=== PATIENT | male | born 1945 | race Caucasian/White ===

== ENCOUNTER → 2018-06-11 18:52 | Outpatient (CLI) | payer MEDICARE ==
[2018-06-11 19:28] LABS: INR 1.23 (0.85-1.17)
== END | disposition home or self-care (01) ==
LOC: D.LABREF 18:52
PROVIDERS: Family Medicine
DX: I73.9 Peripheral vascular disease, unspecified (principal); Z51.81 Encounter for therapeutic drug level monitoring; Z79.01 Long term (current) use of anticoagulants

== ENCOUNTER → 2021-01-13 14:07 | Outpatient (CLI) | payer MEDICARE ==
[2021-01-13 15:54] LABS: ALBUMIN 2.1 g/dL (3.4-5.0); ANION GAP 13.5 mmol/L (8-16); BILIRUBIN - TOTAL 0.38 mg/dL (0.2-1.3); CALCIUM 8.3 mg/dL (8.5-10.1); CARBON DIOXIDE 30.1 mmol/L (21.0-32.0); CREATININE - SERUM 4.4 mg/dL (0.6-1.3); POTASSIUM - SERUM 4.6 mmol/L (3.5-5.1); PROTEIN - SERUM 7.3 g/dL (6.4-8.2)
[2021-01-13 16:28] LABS: HEMATOCRIT 34.9 % (42.0-54.0); HEMOGLOBIN 10.5 g/dL (13.5-17.5); LYMPHOCYTE ABS# 2.54 10x3/uL (1.32-3.57); MCHC 30.1 g/dL (31.0-37.0); MCV 99.7 fL (80.0-100.0); MEAN PLATELET VOLUME 9.8 fL (7.4-10.4); NEUTROPHIL ABS# 5.71 10x3/uL (1.78-5.38); PLATELET COUNT 480 10x3/uL (130-400); RDW 15.5 % (11.5-14.5)
[2021-01-13 17:18] LABS: EOSINOPHILS 2 % (0-7); LYMPHOCYTES 32 % (15-50); MONOCYTES 6 % (2-11); NEUTROPHILS 60 % (40-80); PLATELET ESTIMATE NORMAL
== END | disposition home or self-care (01) ==
LOC: D.LABREF 14:07
PROVIDERS: ATTEND Legal Medicine
DX: R53.83 Other fatigue (principal)

== ENCOUNTER 2021-03-28 07:48 | Inpatient (IN) | payer MEDICARE ==
[~2021-03-28] VITALS: Ht 177.8 cm; Wt 71.1 kg
[2021-03-28 08:20] LABS: ANION GAP 20.9 mmol/L (8-16); CALCIUM 9.6 mg/dL (8.5-10.1); CARBON DIOXIDE 27.2 mmol/L (21.0-32.0); CREATININE - SERUM 6.5 mg/dL (0.6-1.3); POTASSIUM - SERUM 5.1 mmol/L (3.5-5.1)
[2021-03-28 08:21] LABS: INR 4.06 (0.85-1.17); PROTIME 36.8 SECONDS (11.6-15.0)
[2021-03-28 08:22] LABS: BASOPHILS 1.3 % (0-2); EOSINOPHILS 5.1 % (0-7); HEMATOCRIT 34.2 % (42.0-54.0); HEMOGLOBIN 10.9 g/dL (13.5-17.5); LYMPHOCYTES 31.1 % (15-50); MCH 30.2 pg (26.0-34.0); MCHC 31.9 g/dL (31.0-37.0); MCV 94.4 fL (80.0-100.0); MEAN PLATELET VOLUME 7.5 fL (7.4-10.4); MONOCYTES 9.1 % (2-11); NEUTROPHILS 53.4 % (40-80); PLATELET COUNT 409 10x3/uL (130-400); RBC 3.62 10x6/uL (4.20-6.10); WBC 15.2 10x3/uL (4.8-10.8)
[2021-03-28] MEDS ORDERED: PRAVASTATIN SOD10 MG PO (09:41)
[2021-03-28] MEDS ORDERED: SYNTHROID175 MCG PO (09:41)
[2021-03-28] MEDS ORDERED: HUMALOG 30100 UNITS/ (09:43)
[2021-03-28] MEDS ORDERED: ACETAMINOPHEN325 MG PO (09:43)
[2021-03-28] MEDS ORDERED: LOW DOSE ASPIRI81 M1 PO (09:45)
[2021-03-28] MEDS ORDERED: BYSTOLIC5 MG PO (09:46)
[2021-03-28] MEDS ORDERED: SINEMET 25-1001 EAC1 PO (09:46)
[2021-03-28] MEDS ORDERED: PROTONIX40 MG PO (09:46)
[2021-03-28] MEDS ORDERED: VITAMIN D31250 MCG PO (09:46)
[2021-03-28] MEDS ORDERED: ZINC SULFATE220 MG PO (09:47)
[2021-03-28] MEDS ORDERED: DONEPEZIL HCL5 MG (09:47)
[2021-03-28] MEDS ORDERED: ASCORBIC ACID500 MG PO (09:47)
[2021-03-28] MEDS ORDERED: LISINOPRIL5 MG (09:48)
[2021-03-28] MEDS ORDERED: LEVEMIR IN100 UNITS/ SQ (09:48)
[2021-03-28] MEDS ORDERED: RENVELA800 MG PO (09:48)
[2021-03-28] MEDS ORDERED: ULTRAM50 MG PO (09:49)
[2021-03-28 09:50] VITALS: BMI 24.4
[2021-03-28 10:16] LABS: INR 1.18 (0.85-1.17); PROTIME 13.9 SECONDS (11.6-15.0)
--- NOTE | 2021-03-28 16:24 | NUR ---
COUDLNT HEAR BRUIT THROUGH STETHOSCOPE. DOPPLERED AND SOUNDS AUDIBLE.
--- NOTE | 2021-03-28 16:42 | NUR ---
Report called by ESTEE Escamilla from recovery.
--- NOTE | 2021-03-28 16:50 | NUR ---
PT RESPONDS TO VERBAL STIMULI AND DENIES ANY PAIN
--- NOTE | 2021-03-28 17:00 | NUR ---
Rcvd from outpatient surgery in somewhat stable condition via stretcher accompanied by hospital staff, currently lethargic but will answer questions appropriately, lying in bed with eyes closed, respirations slow/deep/even, rouses easily with verbal stimulus, T/R freq for c/c, incont of B/B with use of incont pads, denies pain/other discomfort at this time, no s/s of acute distress observed.
[2021-03-28 18:27] VITALS: BP 100/31; BMI 24.4
[2021-03-28 18:40] VITALS: BP 107/41
--- NOTE | 2021-03-28 18:50 | NUR ---
PT RECEIVED LYING IN BED, APPEARS ASLEEP AWAKENS EASILY A&O TO PERSON, PLACE AND SITUATION DOES STATE ITI S 2015. LESLIE DRAIN INTACT TO LEFT UPPER SHOULDER, BLOODY DRIANAGE NOTED TO BULB, BULB IS COMPRESSED. NO DISTRESS NOTED WILL COTNINUE TO MONITOR
[2021-03-29] VITALS (11 sets, daily range): BP systolic 92–124; BP diastolic 36–80; Ht 177.8 cm; Wt 71.1 kg
--- NOTE | 2021-03-29 07:05 | NUR ---
PT LYING IN BED. RESP EVEN AND UNLABORED. ALERT AND ORIENTED TO PERSON AND TIME. CONFUSED OF PLACE. DENIES NEEDS AT THIS TIME. CLIR. BED IN LOWEST POSITION. SIDE RAILS X2
--- NOTE | 2021-03-29 11:30 | NUR ---
PT'S LESLIE DRAIN REMOVED PER DR. DRAPER. 15 mL OF SEROSANGUINEOUS DRAINAGE IN BULB. DRESSING APPLIED TO SITE. NO BLEEDING NOTED. PT TOLERATED WITHOUT COMPLAINT
[2021-03-29] MEDS ORDERED: DONEPEZIL HCL10 MG PO (13:20)
--- NOTE | 2021-03-29 14:41 | NUR ---
PT LEFT UNIT FOR DIALYSIS ACCOMPANIED BY HOSPITAL STAFF
--- NOTE | 2021-03-29 16:30 | NUR ---
PT RECEIVED VIA DIALYSIS AND MED II RN GIVES REPORT WELL. PLACED TO ICU BED SAFELY AND HOOKED TO MONITORS. PLEASE SEE ASSESSMENT.
--- NOTE | 2021-03-29 16:41 | NUR ---
PT TRANSFERRED TO ICU. REPORT GIVEN TO TANJA FONTANEZ
[2021-03-30] VITALS: BP 127/54
[2021-03-30 01:00] VITALS: BP 115/63
[2021-03-30 01:55] LABS: BILIRUBIN NEGATIVE (NEGATIVE); KETONE NEGATIVE (NEGATIVE); NITRITE NEGATIVE (NEGATIVE); UROBILINOGEN NORMAL mg/dL (< 2)
[2021-03-30 01:57] LABS: BACTERIA MODERATE HPF (NONE SEEN); SQUAMOUS EPITHELIAL 0-5 HPF (0-4); WHITE CELLS - URINE >50 HPF (0-1)
[2021-03-30 05:26] LABS: CREATININE - SERUM 8.1 mg/dL (0.6-1.3); VANCOMYCIN - RANDOM 13.9 ug/mL (10.0-20.0)
[2021-03-30 07:00] VITALS: BP 136/56
--- NOTE | 2021-03-30 07:30 | NUR ---
SHIFT ASSESSMENT COMPLETE. PATIENT IS WANTING TO GET UP OUT OF BED AND PULLING ON LINES AND WIRES. WIRES AND LINES HIDDEN BEST POSSIBLE. WILL CONTINUE TO MONITOR. PATIENT IN VIEW OF NURSES STATION.
--- NOTE | 2021-03-30 09:30 | NUR ---
PATIENT RESTING OCCASSIONLLY PULLING AT WIRES.
[2021-03-30 11:00] VITALS: BP 129/43
--- NOTE | 2021-03-30 11:01 | NUR ---
AFTER RECEIVING LANTUS FROM PHARMACY, GIVEN ORDERED.PATIENT IS ALERT AND MEAL ORDERED PER MD.
--- NOTE | 2021-03-30 11:30 | NUR ---
PATIENT REFUSED DINNER. WILL CONTINUE TO MONITOR PATIENT. PATIENT DENIES WANTING TO EAT STATES HE IS NOT HUNGRY. EXPLAINED THAT HE HAD RECEIVED HIS INSULIN AND REFUSES EVEN JELLO. PATIENT STATES "YOU WILL KNOW WHEN MY BLOOD SUGAR GETS LOW AND I PASS OUT." UNABLE TO REASON WITH PATIENT.
[2021-03-30 13:42] LABS: BASOPHILS 0.9 % (0-2); EOSINOPHILS 3.7 % (0-7); HEMATOCRIT 30.9 % (42.0-54.0); HEMOGLOBIN 9.9 g/dL (13.5-17.5); MCH 30.5 pg (26.0-34.0); MCHC 32.1 g/dL (31.0-37.0); MCV 95.1 fL (80.0-100.0); MEAN PLATELET VOLUME 7.9 fL (7.4-10.4); MONOCYTES 8.8 % (2-11); NEUTROPHILS 65.6 % (40-80); RBC 3.25 10x6/uL (4.20-6.10)
[2021-03-30 13:43] LABS: PLATELET COUNT 275 10x3/uL (130-400); WBC 10.2 10x3/uL (4.8-10.8)
--- NOTE | 2021-03-30 14:29 | NUR ---
RECEIVED PATIENT TO ROOM 2130 VIA STRETCHER. PATIENT IS AAOX2, PIV TO RT HAND, PATENT, SL. LT BKA NOTED AND DRSG TO RT HEEL C/D/I. PATIENT HAS LT UPPER ARM AV FISTULA, BRUIT AND THRILL NOTED. PATIENT DENIES NEEDS AT THIS TIME. CL IN REACH, BED LOCKED AND LOWERED. BED ALARM ON AND WORKING. WILL CPOC.
--- NOTE | 2021-03-30 16:20 | NUR ---
PATIENT REPORT GIVEN TO ESTEE RAMIREZ, AND MOVED AROUND TO ROOM 2130.
[2021-03-30 23:18] VITALS: BP 128/44
[2021-03-31 05:18] VITALS: BP 121/47
--- NOTE | 2021-03-31 07:00 | NUR ---
Lying in bed, awake/alert/oriented with intermittent confusion, T/R self ad andrei, cont of B/B with use of urinal and Bedpan ad andrei, denies pain/other discomfort at this time, call light/phone/water within reach, no s/s of acute distress observed.
--- NOTE | 2021-03-31 08:15 | NUR ---
Off unit for dialysis via bed in stable condition accompanied by hospital staff, no s/s of acute distress observed.
[2021-03-31 08:52] LABS: BASOPHILS 0.6 % (0-2); EOSINOPHILS 3.6 % (0-7); HEMATOCRIT 31.7 % (42.0-54.0); HEMOGLOBIN 10.2 g/dL (13.5-17.5); LYMPHOCYTES 22.2 % (15-50); MCH 30.6 pg (26.0-34.0); MCHC 32.3 g/dL (31.0-37.0); MCV 94.8 fL (80.0-100.0); MEAN PLATELET VOLUME 8.2 fL (7.4-10.4); MONOCYTES 9.5 % (2-11); NEUTROPHILS 64.1 % (40-80); PLATELET COUNT 256 10x3/uL (130-400); RBC 3.35 10x6/uL (4.20-6.10); RDW 14.6 % (11.5-14.5); WBC 10.3 10x3/uL (4.8-10.8)
[2021-03-31 08:57] VITALS: BP 126/41
[2021-03-31 09:00] LABS: ANION GAP 24.1 mmol/L (8-16); CALCIUM 8.5 mg/dL (8.5-10.1); CARBON DIOXIDE 22.4 mmol/L (21.0-32.0); CREATININE - SERUM 9.4 mg/dL (0.6-1.3); POTASSIUM - SERUM 5.5 mmol/L (3.5-5.1)
--- NOTE | 2021-03-31 13:08 | NUR ---
Returned to unit via bed in stable condition accompanied by hospital staff, report called by ESTEE Langston, states took off 2 liters and VS were 19 R, 63 HR, 131/35.
--- NOTE | 2021-03-31 14:00 | NUR ---
Pt exhibiting increased confusion/agitation...pulling at lines/tubing, interferring with care and attempting to stop nursing and respiratory from providing needed care, called CODI Wang, explained situation and received order for soft wrist restraints x 2, applied as ordered, placed O2 back on and O2 sat increased back up to 98% from 76% in less than 1 minute
--- NOTE | 2021-03-31 14:00 | NUR ---
Nutrition Follow-up: POD 3 AVG placement, AVG ligation. Poor PO intake; 0% of breakfast this AM. Per renal, HD today and ok to d/c to NH. Diet: Renal ADA Wt: 156# (03/30) Labs noted: K+ 5.5, Glu 72 Meds noted: Florajen, Lantus, Humalog, Renvela, Protonix, vit C -Encourage PO intake and honor food preferences within diet restrictions. -+Nepro with meals. -RD follow-up: 04/03
--- NOTE | 2021-03-31 14:30 | NUR ---
Called Michelle Navarrete, notified of situation with brother, she is physically unable to come to pt room and sit but will ask his nephew to come when he is off work.
--- NOTE | 2021-03-31 17:00 | NUR ---
Nephew here sitting with pt and attempting to get pt to eat without much success, while nephew is here pt visibly calmer and able to leave restraints off at this time.
[2021-03-31 20:37] VITALS: BP 123/55
[2021-04-01] VITALS: BP 133/50
--- NOTE | 2021-04-01 00:26 | NUR ---
NEW 20G PIV STARTED TO RIGHT HAND. PATIENT CONTINUES SOFT WRIST BILATERAL RESTRAINTS. NO SIGNS OF INJURY. PATIENT STATES THAT HE NEEDS TO GET UP AND GET IN HIS GO-CART TO GO TO DIALYSIS. PATIENT HALLUCINATING, TALKING TO PEOPLE THAT AREN'T THERE, HANDING PEOPLE IMAGINARY ITEMS. WILL CONTINUE TO MONITOR.
--- NOTE | 2021-04-01 07:00 | NUR ---
REPORT RECEIVED. PATIENT IS ALERT BUT CONFUSED. STILL WITH BILATERAL SOFT WRIST RESTRAINTS. NO S/S OF DISTRESS OBSERVED, RR EVEN AND UNLABORED ON 2L O2 VIA NC. PIV TO RT HAND, PATENT, SL. DRSG TO RIGHT HEEL, C/D/I. NO NEEDS EXPRESSED AT THIS TIME. CL IN REACH, BED LOCKED AND LOWERED. MARTIN ALARM ON. WILL CPOC.
[2021-04-01 11:11] VITALS: BP 128/54
--- NOTE | 2021-04-01 11:36 | NUR ---
I have reviewed this patient and I concur with the Shift Assessment completed by the Licensed Practical Nurse today this shift.
[2021-04-01 11:54] LABS: BASOPHILS 0.9 % (0-2); EOSINOPHILS 5.3 % (0-7); HEMATOCRIT 33.9 % (42.0-54.0); HEMOGLOBIN 10.9 g/dL (13.5-17.5); LYMPHOCYTES 24.2 % (15-50); MCH 30.6 pg (26.0-34.0); MCHC 32.2 g/dL (31.0-37.0); MCV 95.1 fL (80.0-100.0); MEAN PLATELET VOLUME 7.5 fL (7.4-10.4); MONOCYTES 12.3 % (2-11); NEUTROPHILS 57.3 % (40-80); PLATELET COUNT 260 10x3/uL (130-400); RBC 3.57 10x6/uL (4.20-6.10); RDW 14.7 % (11.5-14.5); WBC 7.3 10x3/uL (4.8-10.8)
[2021-04-01 12:51] LABS: CALCIUM 8.5 mg/dL (8.5-10.1); CARBON DIOXIDE 27.6 mmol/L (21.0-32.0)
[2021-04-01 12:57] LABS: BILIRUBIN - TOTAL 0.53 mg/dL (0.2-1.3)
[2021-04-01] MEDS ORDERED: PLAVIX75 MG PO (12:58)
[2021-04-01] MEDS ORDERED: NITRO-BID OINT30 G1 TOPICAL (12:59)
[2021-04-01 13:00] LABS: ANION GAP 17.8 mmol/L (8-16); POTASSIUM - SERUM 4.4 mmol/L (3.5-5.1)
[2021-04-01] MEDS ORDERED: DAKIN'S 0.25%480 ML TOPICAL (13:08)
--- NOTE | 2021-04-01 16:39 | MORECARE ---
CASE MANAGEMENT DISCHARGE SUMMARY PATIENT: ED MORFIN UNIT: [id number] ADM DATE: 03/29/21 AGE: 75 : 46 SEX: M ROOM/BED: D.213 AUTHOR: GUERO,DOC PHYSICIAN: REFERRING PHYSICIAN: GALEN DRAPER MD DATE OF SERVICE: 04/01/21 Case Management Discharge Planning Summary DCP REVIEW SUMMARY ANTICIPATED D/C DATE: EXPECTED LOS : CASE STATUS: DCP Initiated INITIAL REVIEW: 03/28/2021 INITIAL REVIEWER: Miguel Angel Nuñez FINAL DISCHARGE DISPOSITION: : FINAL REVIEWER: FINAL REVIEW DATE: DCP Focus Questions & Answers QUESTION: ANSWER : PATIENT: ED MORFIN ENCOUNTER: [id number] MEDICAL RECORD#: [id number] ADMISSION DATE: 03/29/2021 DISCHARGE DATE: ATTENDING MD: GALEN CHRISTIANSEN : AGE: 75 MARITAL STATUS: S DC PLAN ID: [id number] FACILITY: [facility] PRINTED ON: 04/01/21 16:39 CT All edits/amendments must be made on the electronic document DICTATION DATE: 04/01/21 163 ENTERPRISE SECURITY ARCHITECT: DM 04/01/21 1639 RPT#: [id number] DC DATE: STATUS: ADM IN [facility] [address] [place] [address] END OF REPORT
--- NOTE | 2021-04-01 17:02 | MORECARE ---
CASE MANAGEMENT DISCHARGE SUMMARY PATIENT: ED MORFIN UNIT: [id number] ADM DATE: 03/29/21 AGE: 75 : 46 SEX: M ROOM/BED: D.2130 AUTHOR: KIRSTIN JACK PHYSICIAN: REFERRING PHYSICIAN: GALEN DRAPER MD DATE OF SERVICE: 04/01/21 Case Management Discharge Planning Summary COMMENTS ENTERED DATE: 04/01/21 16:54 CT COMMENT TYPE: Discharge Planning REVIEWER: Miguel Angel Nuñez Received DC notification. Spoke with sister, Michelle Navarrete, . Michelle Tong stated that she is currently in the Emergency Room for kidney issues. Michelle Tong stated that she does not believe that her brother should DC at this time due to his confusion. Michelle Tong stated that she is aware of her brother's baseline confusion and the confusion he is exhibiting at this time is more pronounced. Michelle Tong stated that she feels that her brother should stay until his confusion is at baseline. CM informed Michelle Tong that the physicians have determined that her brother is at baseline. CM will contact [facility] to arrange DC and pickup. Spoke with ESTEE Hernández at [facility]. Betty stated that at this time, the patient cannot transport back to until it is cleared with her manager leadership development. Betty stated that she believes that a Saturday DC may be possible. CM will contact again in the am. DC IMM telephonically explained to Michelle Tong, verbal signature obtained, however, Michelle Tong stated that she may pursue an appeal of DC should she feel that the DC is inappropriate. CM encouraged the patient's sister to allow [facility] to evaluate Clinical Documentation before pursuing appeal. Michelle Tong agreed. Patient's primary care physician is Dr. Tapia and his medications are filled by the [facility] facility. CM will continue to follow and will assist as needed with dc plans/needs. DCP REVIEW SUMMARY ANTICIPATED D/C DATE: EXPECTED LOS : CASE STATUS: DCP Initiated INITIAL REVIEW: 03/28/2021 INITIAL REVIEWER: Miguel Angel Nuñez FINAL DISCHARGE DISPOSITION: : FINAL REVIEWER: FINAL REVIEW DATE: DCP Focus Questions & Answers QUESTION: ANSWER : PATIENT: ED MORFIN ENCOUNTER: [id number] MEDICAL RECORD#: [id number] ADMISSION DATE: 03/29/2021 DISCHARGE DATE: ATTENDING MD: GALEN CHRISTIANSEN : AGE: 75 MARITAL STATUS: S DC PLAN ID: [id number] FACILITY: [facility] PRINTED ON: 04/01/21 17:02 CT All edits/amendments must be made on the electronic document DICTATION DATE: 04/01/211701 SLAB GRINDER: LISBETH 04/01/211701 RPT#: [id number] DC DATE: STATUS: ADM IN [facility] [address] [place] [address] END OF REPORT
[2021-04-01 20:00] VITALS: BP 119/47
[2021-04-02 00:32] VITALS: BP 111/44
[2021-04-02 04:54] VITALS: BP 108/28
--- NOTE | 2021-04-02 06:41 | NUR ---
PM FSBS 205; 8 UNITS INSULIN ADMINISTERED, PER SLIDING SCALE, PER ORDER. PT REPORTED HE FELT HIS BLOOD SUGAR WAS LOW DURING THE NIGHT, FSBS 47. GLEN ULLOA PROVIDED, PT ACCEPTED. FSBS THIS AM 268; DID NOT TREAT BLOOD SUGAR, DISCUSSED WITH DAY SHIFT NURSE.
[2021-04-02 07:07] LABS: CREATININE - SERUM 8.6 mg/dL (0.6-1.3)
[2021-04-02 07:14] LABS: VANCOMYCIN - RANDOM 21.8 ug/mL (10.0-20.0)
[2021-04-02 08:13] VITALS: BP 86/25
--- NOTE | 2021-04-02 09:00 | NUR ---
DRESSING TO RIGHT HEEL COMPLETED PER MD ORDERS. PATIENT TOLLERATED WELL.
[2021-04-02 10:17] VITALS: BP 87/45
--- NOTE | 2021-04-02 10:28 | NUR ---
PATIENT IN BED, AROUSES TO VOICE. DENIES NEEDS AT THIS TIME. SWALLOWED PILLS VERY WELL. DOES NOT WANT TO EAT WHEN ASKED ABOUT EATING. IV MEDICATION INFUSING PER MAR. FREE FROM SIGNS OF DISTRESS. WILL CONTINUE TO MONITOR.
--- NOTE | 2021-04-02 11:39 | MORECARE ---
CASE MANAGEMENT DISCHARGE SUMMARY PATIENT: ED MORFIN UNIT: [id number] ADM DATE: 03/29/21 AGE: 75 : 46 SEX: M ROOM/BED: D.2130 AUTHOR: GUERO,DOC PHYSICIAN: REFERRING PHYSICIAN: GLAEN DRAPER MD DATE OF SERVICE: 04/02/21 Case Management Discharge Planning Summary COMMENTS ENTERED DATE: 04/02/21 11:27 CT COMMENT TYPE: Discharge Planning REVIEWER: Miguel Angel Nuñez Spoke with Lety at [facility] to inform that patient has had increased metabolic encephalopathy and restraint use. CM will continue to follow and will assist as needed with dc plans/needs ENTERED DATE: 04/01/21 16:54 CT COMMENT TYPE: Discharge Planning REVIEWER: Miguel Angel Nuñez Received DC notification. Spoke with sister, Michelle Navarrete, . Michelle Tong stated that she is currently in the Emergency Room for kidney issues. Michelle Tong stated that she does not believe that her brother should DC at this time due to his confusion. Michelle Tong stated that she is aware of her brother's baseline confusion and the confusion he is exhibiting at this time is more pronounced. Michelle Tong stated that she feels that her brother should stay until his confusion is at baseline. CM informed Michelle Tong that the physicians have determined that her brother is at baseline. CM will contact [facility] to arrange DC and pickup. Spoke with ESTEE Hernández at [facility]. Betty stated that at this time, the patient cannot transport back to until it is cleared with her owner manager. Betty stated that she believes that a Saturday DC may be possible. CM will contact again in the am. DC IMM telephonically explained to Michelle Tong, verbal signature obtained, however, Michelle Tong stated that she may pursue an appeal of DC should she feel that the DC is inappropriate. CM encouraged the patient's sister to allow [facility] to evaluate Clinical Documentation before pursuing appeal. Michelle Tong agreed. Patient's primary care physician is Dr. Tapia and his medications are filled by the [facility] facility. CM will continue to follow and will assist as needed with dc plans/needs. Appended by Miguel Angel Nuñez on 04/01/2021 17:02 CDT: Michelle Tong stated that she would like a call back in the AM. CM informed Michelle Tong that the patient is considered to be stable and at baseline and appropriate for DC. Michelle Tong stated that [facility] and "...see him looking like he needs to be in the hospital ICU". CM informed Michelle Tong that her brother is stable and at baseline. No other mention of appeal stated. CM will follow up with Michelle Tong and Elsa Beach in the morning. CM will continue to follow and will assist as needed with dc plans/needs. DCP REVIEW SUMMARY ANTICIPATED D/C DATE: EXPECTED LOS : CASE STATUS: DCP Initiated INITIAL REVIEW: 03/28/2021 INITIAL REVIEWER: Miguel Angel Nuñez FINAL DISCHARGE DISPOSITION: : FINAL REVIEWER: FINAL REVIEW DATE: DCP Focus Questions & Answers QUESTION: ANSWER : PATIENT: ED MORFIN ENCOUNTER: [id number] MEDICAL RECORD#: [id number] ADMISSION DATE: 03/29/2021 DISCHARGE DATE: ATTENDING MD: GALEN CHRISTIANSEN : AGE: 75 MARITAL STATUS: S DC PLAN ID: [id number] FACILITY: [facility] PRINTED ON: 04/02/21 11:39 CT All edits/amendments must be made on the electronic document DICTATION DATE: 04/02/211138 SPORTS UMPIRE: LISBETH 04/02/21 113 RPT#: [id number] DC DATE: STATUS: ADM IN [facility] [address] [place] [address] END OF REPORT
--- NOTE | 2021-04-02 17:09 | NUR ---
CHECKED BLOOD GLUCOSE AND RESULT WAS 60. PATIENT ATE ONE PACK OF FELIX CRACKERS, ONE AND A HALF SMALL CONTAINERS OF PEANUT BUTTER, DRANK ONE ORANGE JUICE, AND ONE MILK CARTON. RECHECKED BLOOD GLUCOSE 30 MINUTES LATER. RESULT WAS 113.
[2021-04-02 19:00] VITALS: BP 139/42
[2021-04-03] VITALS: BP 113/38
[2021-04-03 04:00] VITALS: BP 108/61
[2021-04-03 06:58] LABS: BASOPHILS 0.6 % (0-2); EOSINOPHILS 4.9 % (0-7); HEMATOCRIT 31.7 % (42.0-54.0); HEMOGLOBIN 10.3 g/dL (13.5-17.5); LYMPHOCYTES 26.3 % (15-50); MCHC 32.4 g/dL (31.0-37.0); MCV 95.7 fL (80.0-100.0); MEAN PLATELET VOLUME 8.3 fL (7.4-10.4); NEUTROPHILS 55.2 % (40-80); PLATELET COUNT 265 10x3/uL (130-400); RBC 3.32 10x6/uL (4.20-6.10); RDW 14.6 % (11.5-14.5); WBC 8.4 10x3/uL (4.8-10.8)
[2021-04-03 07:13] LABS: ALBUMIN 2.9 g/dL (3.4-5.0); ANION GAP 23.3 mmol/L (8-16); BILIRUBIN - TOTAL 0.34 mg/dL (0.2-1.3); CALCIUM 7.9 mg/dL (8.5-10.1); CARBON DIOXIDE 23.2 mmol/L (21.0-32.0); CREATININE - SERUM 10.2 mg/dL (0.6-1.3); POTASSIUM - SERUM 4.5 mmol/L (3.5-5.1); PROTEIN - SERUM 7.4 g/dL (6.4-8.2); VANCOMYCIN - RANDOM 18.3 ug/mL (10.0-20.0)
[2021-04-03 08:00] VITALS: BP 142/84
--- NOTE | 2021-04-03 11:00 | NUR ---
PATIENT AAOX3, RESP EVEN AND NON LABORED, NO S/S OF DISTRESS, MEDICATIONS ADMINISTERED WITH NO COMPLICATIONS, PATIENT HAD DIARRHEA AND COMPLETE BED CHANGE, NO FURTHER NEEDS AT THIS TIME, CLIR, BLP
--- NOTE | 2021-04-03 14:11 | NUR ---
Nutrition Follow-up: Pt confused. Poor PO intake reported yesterday but ate breakfast and drank Nepro this AM. Nursing reports diarrhea. Noted plans to d/c following HD today. Diet: Renal ADA, Nepro TID No new wt; last wt: 156# (03/30) Labs noted: K+ 4.5, Glu 331, Ca 7.9, Alb 2.9 Meds noted: Florajen, Lantus, Humalog, Renvela, Protonix, vit C -Encourage PO intake and honor food preferences within diet restrictions. -Monitor wt. -RD will follow up within 3-4 days if pt still admitted.
--- NOTE | 2021-04-03 15:52 | MORECARE ---
CASE MANAGEMENT DISCHARGE SUMMARY PATIENT: ED MORFIN UNIT: [id number] ADM DATE: 03/29/21 AGE: 75 : 46 SEX: M ROOM/BED: D.2130 AUTHOR: GUERO,DOC PHYSICIAN: REFERRING PHYSICIAN: GALEN DRAPER MD DATE OF SERVICE: 04/03/21 Case Management Discharge Planning Summary COMMENTS ENTERED DATE: 04/02/21 11:27 CT COMMENT TYPE: Discharge Planning REVIEWER: Miguel Angel Nuñez Spoke with Lety at [facility] to inform that patient has had increased metabolic encephalopathy and restraint use. CM will continue to follow and will assist as needed with dc plans/needs ENTERED DATE: 04/01/21 16:54 CT COMMENT TYPE: Discharge Planning REVIEWER: Miguel Angel Nuñez Received DC notification. Spoke with sister, Michelle Navarrete, . Michelle Tong stated that she is currently in the Emergency Room for kidney issues. Michelle Tong stated that she does not believe that her brother should DC at this time due to his confusion. Michelle Tong stated that she is aware of her brother's baseline confusion and the confusion he is exhibiting at this time is more pronounced. Michelle Tong stated that she feels that her brother should stay until his confusion is at baseline. CM informed Michelle Tong that the physicians have determined that her brother is at baseline. CM will contact [facility] to arrange DC and pickup. Spoke with ESTEE Hernández at [facility]. Betty stated that at this time, the patient cannot transport back to until it is cleared with her care transitions manager. Betty stated that she believes that a Saturday DC may be possible. CM will contact again in the am. DC IMM telephonically explained to Michelle Tong, verbal signature obtained, however, Michelle Tong stated that she may pursue an appeal of DC should she feel that the DC is inappropriate. CM encouraged the patient's sister to allow [facility] to evaluate Clinical Documentation before pursuing appeal. Michelle Tong agreed. Patient's primary care physician is Dr. Tapia and his medications are filled by the [facility] facility. CM will continue to follow and will assist as needed with dc plans/needs. Appended by Miguel Angel Nuñez on 04/01/2021 17:02 CDT: Michelle Tong stated that she would like a call back in the AM. CM informed Michelle Tong that the patient is considered to be stable and at baseline and appropriate for DC. Michelle Tong stated that she does not want to go to the [place] and "...see him looking like he needs to be in the hospital ICU". CM informed Michelle Tong that her brother is stable and at baseline. No other mention of appeal stated. CM will follow up with Michelle Tong and Elsa Yong in the morning. CM will continue to follow and will assist as needed with dc plans/needs. DCP REVIEW SUMMARY ANTICIPATED D/C DATE: EXPECTED LOS : CASE STATUS: DCP Initiated INITIAL REVIEW: 03/28/2021 INITIAL REVIEWER: Miguel Angel Nuñez FINAL DISCHARGE DISPOSITION: : FINAL REVIEWER: FINAL REVIEW DATE: DCP Focus Questions & Answers QUESTION: ANSWER : PROVIDER NETWORKING REVIEW DATE: 04/03/2021 SERVICE TYPE: Detention Facility REVIEWER: Tabitha Lama PROVIDER: FINAL PROVIDER? : FINAL DATE/TIME: CT REVIEW DATE: 04/03/2021 SERVICE TYPE: Detention Facility REVIEWER: Tabitha Lama PROVIDER: FINAL PROVIDER? : FINAL DATE/TIME: CT REVIEW DATE: 04/03/2021 SERVICE TYPE: Detention Facility REVIEWER: Tabitha Lama PROVIDER: FINAL PROVIDER? : FINAL DATE/TIME: CT PATIENT: ED MORFIN ENCOUNTER: [id number] MEDICAL RECORD#: [id number] ADMISSION DATE: 03/29/2021 DISCHARGE DATE: 04/03/2021 ATTENDING MD: GALEN CHRISTIANSEN : [id number] AGE: 75 MARITAL STATUS: S DC PLAN ID: [id number] FACILITY: [facility] PRINTED ON: 04/03/21 15:52 CT All edits/amendments must be made on the electronic document DICTATION DATE: 04/03/211551 GUILLOTINE TRIMMER: LISBETH 04/03/211551 RPT#: [id number] DC DATE:04/03/21 STATUS: DIS IN [facility] [address] [place] [address] END OF REPORT
--- NOTE | 2021-04-04 09:25 | OP ---
PATIENT NAME: ED MORFIN MEDICAL RECORD: [id number] :47 LOCATION:D.M2 D.2130 ADMISSION DATE:03/29/21 SURGEON: GALEN DRAPER MD DATE OF OPERATION: 03/31/2021 The patient was an outpatient, but has been admitted postop, so I guess we call him inpatient. He was operated on 03/28/2021. REFERRING PHYSICIAN: Deana Stein M.D. PREOPERATIVE DIAGNOSES: End-stage renal disease, dependence on hemodialysis, diabetes, peripheral artery disease involving arteries of the upper extremity with ischemic pain and ulceration of the left hand. POSTOPERATIVE DIAGNOSES: End-stage renal disease, dependence on hemodialysis, diabetes, peripheral artery disease involving arteries of the upper extremity with ischemic pain and ulceration of the left hand. OPERATION PERFORMED: Implantation of a new Acuseal PTFE AV graft between the proximal brachial artery and the axillary vein using a tapered 4-7 AV graft and ligation of the existing brachiocephalic AV fistula. SURGEON: Galen Draper M.D. ANESTHESIA: General with LMA per PRODUCTION ASSEMBLY OPERATOR. PREOPERATIVE NOTE: The patient is a 75-year-old white male patient with end-stage renal disease, on chronic hemodialysis. He has been dialyzing for some time with a left brachiocephalic AV fistula. That fistula is a partially translocated basilic vein fistula, which has been problematic and has a stent in the proximal swing segment and very limited length of available fistula for accessing. His hand is extremely ischemic and the fistula needs to be ligated and we might possibly be able to implant a loop graft with a more proximal arterial inflow, but if not, we will still have to ligate this existing fistula. Under anesthesia in supine position the patient was prepped and draped in a sterile manner. I examined him with ultrasound and noted the presence of the stent in the proximal basilic vein and a large plump normal appearing axillary vein and a calcific but otherwise of good caliber axillary and proximal brachial artery. I made a longitudinal incision, which subsequently was extended in a hockey stick pattern anteriorly and exposed the proximal brachial artery in the axillary vein. These vessels were controlled with Silastic loops and clamps as needed. I made a longitudinal incision just above the elbow and exposed the existing fistula and ligated it with 2-0 silk. I then chose a 4-7 tapered Acuseal graft without a ring support and bevelled the arterial end and then occluded the artery and opened it and flushed it proximally and distally with heparinized saline and then performed an anastomosis with running 6-0 Prolene. When completed, there was good arterial inflow into the graft. The graft and artery were flushed with heparinized saline and clamped. The graft was pulled through a subcutaneous tunnel along the anterior aspect of the arm down to the counterincision and then was brought back out through the superficial subcutaneous tunnel to the primary incision and it was shortened and beveled appropriately to be anastomosed to the axillary vein. That vein was occluded and opened. It was flushed proximally and distally with heparinized saline. The valve cusp was excised and the anastomosis was then completed with running OPERATIVE REPORT [id number] ED MORFIN 6-0 Prolene and when that was completed then the occluding clamps and loops were released. Excellent flow was established in the new fistula. There was return of pulsatile high resistance Doppler flow in the radial artery, which was a little affected by occlusion of the new graft. The hand itself was not much difference in appearance or temperature of course at the end of the procedure. I elected to accept this and continue him in observation. The wounds were irrigated with saline. The axillary wound was drained with a 10 mm flat fully fluted type close suction drain, which was brought out anteriorly with a trocar. It was later attached to suction. The wounds were all infiltrated with 0.25% without epinephrine and then closed in layers with interrupted 3-0 Vicryl and running intracuticular 4-0 Stratafix. The incisions were sealed with Dermabond glue and dressed with Maxorb AG covered with Tegaderm and Cavilon skin prep. The patient was then awakened from his anesthetic and in stable condition taken to the recovery room with a functioning AV graft. PLAN: The patient will stay in observation tonight and start dialysis tomorrow morning with his new Acuseal loop graft, which will need to be accessed and used according to Acuseal protocol for the first 2 weeks. I am starting him on Plavix with 150 mg dose in the recovery room and then 75 mg daily. I have also applied topical nitroglycerin ointment to the base of the fingers on his left hand and I will have that done probably twice a day postop. If the patient is not improved in the first 24-48 hours and certainly if he worsens and he will need to have a CTA and consultation with interventional radiology for possible arteriogram and arterial angioplasties. TRANSINT:[id number] Voice Confirmation ID: [id number] DOCUMENT ID: [id number] GALEN DRAPER MD at 0925 CC: ROSA GAMEZ MD and DEANA STEIN MD [id number] DICTATION DATE: 03/31/21837 ESTATE PLANNING DIRECTOR: 03/31/21 0959 DIS IN 04/03/21 [facility] [address] [place] [address]
--- NOTE | 2021-04-04 11:20 | MORECARE ---
CASE MANAGEMENT DISCHARGE SUMMARY PATIENT: ED MORFIN UNIT: [id number] ADM DATE: 03/29/21 AGE: 75 : 46 SEX: M ROOM/BED: D.2130 AUTHOR: GUERO,DOC PHYSICIAN: REFERRING PHYSICIAN: GALEN DRAPER MD DATE OF SERVICE: 04/04/21 Case Management Discharge Planning Summary COMMENTS ENTERED DATE: 04/02/21 11:27 CT COMMENT TYPE: Discharge Planning REVIEWER: Miguel Angel Nuñez Spoke with Lety at [facility] to inform that patient has had increased metabolic encephalopathy and restraint use. CM will continue to follow and will assist as needed with dc plans/needs ENTERED DATE: 04/01/21 16:54 CT COMMENT TYPE: Discharge Planning REVIEWER: Miguel Angel Nuñez Received DC notification. Spoke with sister, Michelle Navarrete, . Michelle Tong stated that she is currently in the Emergency Room for kidney issues. Michelle Tong stated that she does not believe that her brother should DC at this time due to his confusion. Michelle Tong stated that she is aware of her brother's baseline confusion and the confusion he is exhibiting at this time is more pronounced. Michelle Tong stated that she feels that her brother should stay until his confusion is at baseline. CM informed Michelle Tong that the physicians have determined that her brother is at baseline. CM will contact [facility] to arrange DC and pickup. Spoke with ESTEE Hernández at [facility]. Betty stated that at this time, the patient cannot transport back to until it is cleared with her commercial center manager. Betty stated that she believes that a Saturday DC may be possible. CM will contact again in the am. DC IMM telephonically explained to Michelle Tong, verbal signature obtained, however, Michelle Tong stated that she may pursue an appeal of DC should she feel that the DC is inappropriate. CM encouraged the patient's sister to allow [facility] to evaluate Clinical Documentation before pursuing appeal. Michelle Tong agreed. Patient's primary care physician is Dr. Tapia and his medications are filled by the [facility] facility. CM will continue to follow and will assist as needed with dc plans/needs. Appended by Miguel Angel Nuñez on 04/01/2021 17:02 CDT: Michelle Tong stated that she would like a call back in the AM. CM informed Michelle Tong that the patient is considered to be stable and at baseline and appropriate for DC. Michelle Tong stated that she does not want to go to the [place] and "...see him looking like he needs to be in the hospital ICU". CM informed Michelle Tong that her brother is stable and at baseline. No other mention of appeal stated. CM will follow up with Michelle Tong and Elsa Yong in the morning. CM will continue to follow and will assist as needed with dc plans/needs. DCP REVIEW SUMMARY ANTICIPATED D/C DATE: EXPECTED LOS : CASE STATUS: DCP Initiated INITIAL REVIEW: 03/28/2021 INITIAL REVIEWER: Miguel Angel Nuñez FINAL DISCHARGE DISPOSITION: : FINAL REVIEWER: FINAL REVIEW DATE: DCP Focus Questions & Answers QUESTION: ANSWER : PROVIDER NETWORKING REVIEW DATE: 04/03/2021 SERVICE TYPE: Long Term Facility REVIEWER: Tabitha Lama PROVIDER: FINAL PROVIDER? : FINAL DATE/TIME: CT REVIEW DATE: 04/03/2021 SERVICE TYPE: Long Term Facility REVIEWER: Tabitha Lama PROVIDER: FINAL PROVIDER? : FINAL DATE/TIME: CT REVIEW DATE: 04/03/2021 SERVICE TYPE: Long Term Facility REVIEWER: Tabitha Lama PROVIDER: FINAL PROVIDER? : FINAL DATE/TIME: CT PATIENT: ED MORFIN ENCOUNTER: [id number] MEDICAL RECORD#: [id number] ADMISSION DATE: 03/29/2021 DISCHARGE DATE: 04/03/2021 ATTENDING MD: GALEN CHRISTIANSEN : [id number] AGE: 75 MARITAL STATUS: S DC PLAN ID: [id number] FACILITY: [facility] PRINTED ON: 04/04/21 11:19 CT All edits/amendments must be made on the electronic document DICTATION DATE: 04/04/211118 PRINTMAKER: LISBETH 04/04/211118 RPT#: [id number] DC DATE:04/03/21 STATUS: DIS IN [facility] [address] [place] [address] END OF REPORT
== END 2021-04-03 15:47 | DRG 252 ==
LOC: D.OPS 07:48 → D.M2 16:51 → OBSVTIME 16:55 → D.OPS 16:55 → D.M2 16:55 → D.ICU 03-29 14:04 → D.M2 03-29 14:04 → D.ICU 03-29 16:16 → D.M2 03-30 16:22
PROVIDERS: Internal Medicine; ADMIT Surgery; ATTEND Surgery
PROC: 03180JF Bypass Left Brachial Artery to Lower Arm Vein with Synthetic Substitute, Open Approach (ICD-10-PCS; principal; 2021-03-31)
PROC: 05LA0ZZ Occlusion of Left Brachial Vein, Open Approach (ICD-10-PCS; 2021-03-31)
DX: I95.81 Postprocedural hypotension (principal); N18.6 End stage renal disease; I12.0 Hypertensive chronic kidney disease with stage 5 chronic kidney disease or end stage renal disease; E11.22 Type 2 diabetes mellitus with diabetic chronic kidney disease; Z99.2 Dependence on renal dialysis; F03.90 Unspecified dementia, unspecified severity, without behavioral disturbance, psychotic disturbance, mood disturbance, and anxiety

== ENCOUNTER 2021-04-10 10:53 | Emergency (ER) | payer MEDICARE ==
[~2021-04-10] VITALS: Ht 177.8 cm; Wt 81.8 kg
[~2021-04-10 10:53] MED LIST: ACETAMINOPHEN325 MG PO; ASCORBIC ACID500 MG PO; BYSTOLIC5 MG PO; DAKIN'S 0.25%480 ML TOPICAL; DONEPEZIL HCL10 MG PO; DONEPEZIL HCL5 MG; HUMALOG 30100 UNITS/; LEVEMIR IN100 UNITS/ SQ; LISINOPRIL5 MG; LOW DOSE ASPIRI81 M1 PO; NITRO-BID OINT30 G1 TOPICAL; PLAVIX75 MG PO; PRAVASTATIN SOD10 MG PO; PROTONIX40 MG PO; RENVELA800 MG PO; SINEMET 25-1001 EAC1 PO; SYNTHROID175 MCG PO; ULTRAM50 MG PO; VITAMIN D31250 MCG PO; ZINC SULFATE220 MG PO
[2021-04-10 10:56] VITALS: Ht 177.8 cm; Wt 81.8 kg
[2021-04-10 11:30] LABS: BASOPHILS 0.7 % (0-2); EOSINOPHILS 5.9 % (0-7); HEMATOCRIT 33.4 % (42.0-54.0); HEMOGLOBIN 10.6 g/dL (13.5-17.5); LYMPHOCYTES 21.6 % (15-50); MCH 30.2 pg (26.0-34.0); MCHC 31.7 g/dL (31.0-37.0); MCV 95.1 fL (80.0-100.0); MEAN PLATELET VOLUME 7.5 fL (7.4-10.4); MONOCYTES 10.8 % (2-11); PLATELET COUNT 276 10x3/uL (130-400); RBC 3.51 10x6/uL (4.20-6.10); RDW 14.6 % (11.5-14.5); WBC 11.8 10x3/uL (4.8-10.8)
[2021-04-10 11:44] LABS: INR 1.13 (0.85-1.17); PROTIME 13.4 SECONDS (11.6-15.0)
[2021-04-10 11:48] LABS: ANION GAP 14.4 mmol/L (8-16); CALCIUM 8.3 mg/dL (8.5-10.1); CARBON DIOXIDE 27.2 mmol/L (21.0-32.0); CREATININE - SERUM 8.1 mg/dL (0.6-1.3); POTASSIUM - SERUM 4.6 mmol/L (3.5-5.1)
[2021-04-10 11:54] LABS: ALBUMIN 3.4 g/dL (3.4-5.0); BILIRUBIN - TOTAL 0.3 mg/dL (0.2-1.3); PROTEIN - SERUM 8.5 g/dL (6.4-8.2)
[2021-04-10 12:10] LABS: APTT 28.2 SECONDS (22.8-39.4)
[2021-04-10 13:10] VITALS: BP 163/62
== END 2021-04-10 13:16 | disposition other institution (70) ==
LOC: D.ER 10:53
PROVIDERS: Student in an Organized Health Care Education/Training Program
DX: K62.5 Hemorrhage of anus and rectum (principal); N18.6 End stage renal disease; J44.9 Chronic obstructive pulmonary disease, unspecified; Z79.4 Long term (current) use of insulin; E11.22 Type 2 diabetes mellitus with diabetic chronic kidney disease

== ENCOUNTER 2021-04-14 06:24 | Day surgery (SDC) | payer MEDICARE ==
[~2021-04-14] VITALS: Ht 177.8 cm; Wt 81.6 kg
[~2021-04-14 06:24] MED LIST changes: -LISINOPRIL5 MG; +LISINOPRIL5 MG PO
[2021-04-14 07:15] LABS: EOSINOPHILS 6.4 % (0-7); HEMATOCRIT 32.4 % (42.0-54.0); HEMOGLOBIN 10.5 g/dL (13.5-17.5); LYMPHOCYTES 28.2 % (15-50); MCH 30.8 pg (26.0-34.0); MCHC 32.3 g/dL (31.0-37.0); MCV 95.3 fL (80.0-100.0); MEAN PLATELET VOLUME 7.6 fL (7.4-10.4); MONOCYTES 10.9 % (2-11); NEUTROPHILS 53.5 % (40-80); RDW 14.6 % (11.5-14.5); WBC 10.7 10x3/uL (4.8-10.8)
[2021-04-14 07:22] LABS: ANION GAP 16.6 mmol/L (8-16); CALCIUM 8.8 mg/dL (8.5-10.1); CARBON DIOXIDE 28.4 mmol/L (21.0-32.0); CREATININE - SERUM 5.7 mg/dL (0.6-1.3)
[2021-04-14 07:23] LABS: PLATELET COUNT 341 10x3/uL (130-400)
[2021-04-14 07:25] LABS: INR 1.13 (0.85-1.17); PROTIME 13.4 SECONDS (11.6-15.0)
[2021-04-14 08:21] VITALS: BP 117/36; Ht 177.8 cm; Wt 81.6 kg
--- NOTE | 2021-04-14 11:34 | NUR ---
SHORT STAY PER ANESTHESIA
--- NOTE | 2021-04-14 19:05 | NUR ---
1210 PRESSURE APPLIED PER JASMEET WARD. 4X4 AND FOAM TAPE. LARGE CLOT UNDER DRESSING. 1220 DR DRAPER NOTIFIED AND IN ROOM TO SEE DRESSING. ORDERS GIVEN NOT TO CHANGE DRESSING. 1330 IV REMOVED AND 1325 REPORT GIVEN TO MILAGROS AT THE ASSISTED. 1405 PT D/C VIA EMS DUE TO TRANSPORTER AT [facility] AT [facility] . SMALL AMT OF DRAINAGE NOTED TO RIGHT NECK AREA. DRESSING REINFORCED
--- NOTE | 2021-04-16 13:50 | OP ---
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 OPERATION PERFORMED: 1. Implantation of a right internal jugular 19-cm HemoSplit dialysis catheter via the right internal jugular vein done with fluoroscopy and ultrasound guidance. 2. Open ligation of left arm AV graft. PREOPERATIVE NOTE: Mr. Gaxiola is a 75-year-old diabetic with end-stage renal disease, on hemodialysis who had dialyzed for a considerable period of time with a left brachial translocated basilic AV fistula. He had had numerous interventions with stenting and angioplasties in the vein and was still dialyzing with that access, but had developed severe rest pain and gangrenous changes in his left hand. Recently, I operated him and implanted a new Acuseal tapered 4 to 7 AV graft between the proximal brachial or axillary artery and proximal basilic or axillary vein and ligated the previous fistula. This initially worked well and relieved his symptoms. [facility] and has continued to receive wound care. He recently has complained of increasing pain, continuous pain in the left hand, which interferes with his ability even to sleep and he has very painful gangrenous ulcerations to the second and third fingers of the left hand. I believe the patient has such severe peripheral arterial disease that he simply will not support an AV graft or AV fistula and I am today bringing him to the operating room to plan to implant a tunneled dialysis catheter and also to ligate his graft. DESCRIPTION OF PROCEDURE: Under IV sedation, the patient was first placed in supine position and prepped and draped in a sterile manner. The patient has severe kyphosis and a stiff neck, which made positioning difficult. The neck and chest were prepped and draped in a sterile manner and I examined him with B-mode duplex ultrasound and found that the right internal jugular vein appeared to be patent. It was fully compressible and had normal caliber. The left side also appears to be patent with normal caliber and complete compressibility. I injected 1% lidocaine into the skin and subcutaneous tissues as needed. I made a small transverse incision at the base of the neck on the right and using continuous ultrasound guidance, I placed the micropuncture needle and guidewire in the right internal jugular vein. Under fluoroscopy, the wire was advanced into the right atrium. A catheter guidewire exchange was performed and a larger dilator was then passed under fluoroscopy over the wire and lastly a dilator peel-away introducer sheath. I had chosen a 19-cm HemoSplit and made a small incision beneath the clavicle and pulled the catheter from there up to the cervical incision where it was then inserted via the peel-away sheath. The peel-away sheath was removed and the catheter positioning confirmed to be without kinks or complications. The venous limb is on the lateral aspect externally and is in the medial aspect of the right atrium as appropriate or as OPERATIVE REPORT [id number] KATTY GAXIOLA intended. Both lumens were accessed and aspirated, free return of blood was confirmed and they were then flushed with saline and Hep-Lock with 100 units per mL heparin clamped and capped. The catheter was sutured to the skin with a 2-0 Prolene and the cervical incision closed with interrupted inverted 3-0 Vicryl and Dermabond glue. A Biopatch was applied and a sterile standard CVL dressing covered the catheter at the exit site. A Cavilon skin prep was utilized. Before applying the dressing, I did infiltrate the tunnel with 0.25% Marcaine with epinephrine. Next, the patient's left arm was exposed, prepped and draped in sterile manner. I injected 1% lidocaine into the skin and subcutaneous tissues overlying the distal arterial limb on the anterior aspect of the arm just above the antecubital space. I made a vertical incision and exposed the graft with blunt dissection and some minimal electrocautery. I encircled the graft with a 2-0 Prolene, which was tied with a surgeon's knot and care was taken to see that the knot was rotated towards the deep aspect of the incision, so it would not irritate the overlying skin. Doppler examination revealed absence of flow in the graft and persistent monophasic pulsatile flow in the radial artery at the wrist. The incision was sealed with Dermabond glue and dressed with Maxorb AG, Tegaderm, and Cavilon skin prep. He was awakened and in stable condition taken to the recovery room. There was minimal blood loss 5 mL perhaps during the procedure. Sponges, instruments, and needles were accounted for. No drain was used and no surgical specimen submitted for histopathology. The patient will be discharged to [facility] the [facility] today and followup arranged for him in my office next week. He will continue all of the same medications, activities, wound care, dialysis schedule, etc. TRANSINT:[id number] Voice Confirmation ID: [id number] DOCUMENT ID: [id number] GALEN DRAPER MD at 1350 CC: MAGALIS ORTIZ MD [id number] DICTATION DATE: 04/14/21 1151 CORRIDOR REDEVELOPMENT MANAGER: 04/14/21 1610 [facility] [place] 04/14/21 [facility] [address] [place] [address]
== END 2021-04-14 16:05 ==
LOC: D.OPS 06:24
PROVIDERS: ATTEND Surgery
DX: N18.6 End stage renal disease (principal); Z99.2 Dependence on renal dialysis; I70.228 Atherosclerosis of native arteries of extremities with rest pain, other extremity; T82.590A Other mechanical complication of surgically created arteriovenous fistula, initial encounter; I51.9 Heart disease, unspecified; E11.9 Type 2 diabetes mellitus without complications; E07.9 Disorder of thyroid, unspecified

== ENCOUNTER 2021-04-14 16:26 | Inpatient (IN) | payer MEDICARE ==
[~2021-04-14] VITALS: Ht 180.3 cm; Wt 80.0 kg
[2021-04-14] VITALS (7 sets, daily range): BP systolic 77–166; BP diastolic 20–48
[2021-04-14 17:07] LABS: EOSINOPHILS 6.4 % (0-7); HEMATOCRIT 31.5 % (42.0-54.0); HEMOGLOBIN 10.1 g/dL (13.5-17.5); MCH 30.6 pg (26.0-34.0); MCHC 32.1 g/dL (31.0-37.0); MCV 95.3 fL (80.0-100.0); MEAN PLATELET VOLUME 7.5 fL (7.4-10.4); MONOCYTES 14.4 % (2-11); NEUTROPHILS 44.2 % (40-80); PLATELET COUNT 313 10x3/uL (130-400); RDW 14.6 % (11.5-14.5)
[2021-04-14 17:16] LABS: INR 1.18 (0.85-1.17); PROTIME 13.9 SECONDS (11.6-15.0)
[2021-04-14 18:28] LABS: ANION GAP 16.6 mmol/L (8-16); CALCIUM 8.3 mg/dL (8.5-10.1); CREATININE - SERUM 6.4 mg/dL (0.6-1.3); POTASSIUM - SERUM 4.6 mmol/L (3.5-5.1)
[2021-04-14 18:34] LABS: ALBUMIN 3.1 g/dL (3.4-5.0); BILIRUBIN - TOTAL 0.29 mg/dL (0.2-1.3); PROTEIN - SERUM 8.2 g/dL (6.4-8.2)
--- NOTE | 2021-04-14 19:49 | NUR ---
PT BLOOD PRESSURE 77/20 AT THIS TIME. PT PLACED IN TRENDELENBURG AND EDP ROSAMARIA NOTIFIED AT THIS TIME. FURTHER ORDERS FOR FLUID BOLUS ENTERED INTO CHART. PT O2 DROPPED TO 88% AND PT PLACED ON 2 L NC PER VERBAL ORDER.
[2021-04-15 00:43] VITALS: BP 124/38
[2021-04-15 03:52] VITALS: BP 124/38; BMI 24.6
[2021-04-15 05:37] VITALS: BP 124/33
[2021-04-15 06:19] LABS: BASOPHILS 0.9 % (0-2); EOSINOPHILS 6.6 % (0-7); HEMATOCRIT 26.1 % (42.0-54.0); HEMOGLOBIN 8.5 g/dL (13.5-17.5); LYMPHOCYTES 23.2 % (15-50); MCH 31.3 pg (26.0-34.0); MCHC 32.6 g/dL (31.0-37.0); MONOCYTES 11.2 % (2-11); NEUTROPHILS 58.1 % (40-80); RBC 2.72 10x6/uL (4.20-6.10); RDW 14.6 % (11.5-14.5)
[2021-04-15 06:49] LABS: ALBUMIN 2.9 g/dL (3.4-5.0); ANION GAP 18.7 mmol/L (8-16); BILIRUBIN - TOTAL 0.32 mg/dL (0.2-1.3); CARBON DIOXIDE 24.8 mmol/L (21.0-32.0); CREATININE - SERUM 7.2 mg/dL (0.6-1.3); POTASSIUM - SERUM 4.5 mmol/L (3.5-5.1); PROTEIN - SERUM 7.3 g/dL (6.4-8.2)
[2021-04-15 06:51] LABS: PLATELET COUNT 239 10x3/uL (130-400); WBC 10.5 10x3/uL (4.8-10.8)
--- NOTE | 2021-04-15 07:00 | NUR ---
RECEIVED REPORT. ASSUMED CARE OF PATIENT. WHITE BOARD UPDATED, BEDSIDE SHIFT REPORT COMPLETE. SR, RATE OF 75 ON TELEMETRY. NO DISTRESS. CALL LIGHT WITHIN REACH.
[2021-04-15 09:17] VITALS: BP 155/54
[2021-04-15 09:43] VITALS: Ht 180.3 cm; Wt 80.0 kg
--- NOTE | 2021-04-15 10:20 | NUR ---
PATIENT LEFT VIA BED TO DIALYSIS. NO DISTRESS. UPON LEAVING UNIT.
--- NOTE | 2021-04-15 11:38 | NUR ---
fsba 225. awaiting joseluis real to be brought to unit by pharmacyy
--- NOTE | 2021-04-15 13:00 | NUR ---
RECEIVED REPORT FROM DIALYSIS. 2 LITERS REMOVED. PATIENT TO UNIT SOON VIA TRANSPORT.
--- NOTE | 2021-04-15 13:18 | NUR ---
REPORT CALLED TO MYCHAL AT [facility]. MYCHAL STATED SOMEONE SHOULD BE THERE BY 1430 TO PICK THE PATIENT UP.
--- NOTE | 2021-04-15 15:21 | NUR ---
PATIENT LEFT UNIT VIA WHEELCHAIR WITH STOP ATTACHER FROM [facility]. PATIENT LEFT UNIT IN NO DISTRESS WITH ALL PERSONAL BELONGINGS.
--- NOTE | 2021-04-15 19:07 | MORECARE ---
CASE MANAGEMENT DISCHARGE SUMMARY PATIENT: KATTY MORFIN UNIT: [id number] ADM DATE: 04/14/21 AGE: 75 : 46 SEX: M ROOM/BED: D.[facility] AUTHOR: GUERO,DOC PHYSICIAN: REFERRING PHYSICIAN: MARGI VALENTINE MD DATE OF SERVICE: 04/15/21 Case Management Discharge Planning Summary COMMENTS ENTERED DATE: 04/15/21 18:58 CT COMMENT TYPE: Discharge Planning REVIEWER: Miguel Angel Nuñez CM met with patient to complete DC plan and to evaluate needs. Patient lives at [facility]. Spoke with ESTEE Pickett. Nieves stated that patient can return today. Clinical documents faxed to [facility]. LARISSA signed and placed in chart. Patient voiced no other needs at this time and is satisfied with DC plan. Transportation provider at discharge will be with [facility]. DC IMM delivered, explained, signed by the patient, and placed in chart. Signed form also left with the patient. CM will continue to follow and will assist as needed with dc plans/needs. ENTERED DATE: 04/15/21 11:46 CT COMMENT TYPE: Discharge Planning REVIEWER: Julee Granados Faxed clinical documents and D/C order to [facility] ([phone]). DCP REVIEW SUMMARY ANTICIPATED D/C DATE: 04/15/2021 EXPECTED LOS : 1 CASE STATUS: DCP Initiated INITIAL REVIEW: 04/14/2021 INITIAL REVIEWER: Miguel Angel Nuñez FINAL DISCHARGE DISPOSITION: : FINAL REVIEWER: FINAL REVIEW DATE: DCP Focus Questions & Answers QUESTION: ANSWER : PATIENT: KATTY MORFIN ENCOUNTER: [id number] MEDICAL RECORD#: [id number] ADMISSION DATE: 04/14/2021 DISCHARGE DATE: 04/15/2021 ATTENDING MD: MARGI FAULKNER : AGE: 75 MARITAL STATUS: S DC PLAN ID: [id number] FACILITY: [facility] PRINTED ON: 04/15/21 19:07 CT All edits/amendments must be made on the electronic document DICTATION DATE: 04/15/211906 CASTING INSPECTOR: LISBETH 04/15/211906 RPT#: [id number] DC DATE:04/15/21 STATUS: DIS IN [facility] [address] [place] [address] END OF REPORT
--- NOTE | 2021-04-17 16:00 | MORECARE ---
CASE MANAGEMENT DISCHARGE SUMMARY PATIENT: KATTY MORFIN UNIT: [id number] ADM DATE: 04/14/21 AGE: 75 : 46 SEX: M ROOM/BED: D.[facility] AUTHOR: GUERO,DOC PHYSICIAN: REFERRING PHYSICIAN: MARGI VALENTINE MD DATE OF SERVICE: 04/17/21 Case Management Discharge Planning Summary COMMENTS ENTERED DATE: 04/15/21 18:58 CT COMMENT TYPE: Discharge Planning REVIEWER: Miguel Angel Nuñez CM met with patient to complete DC plan and to evaluate needs. Patient lives at [facility]. Spoke with ESTEE Pickett. Nieves stated that patient can return today. Clinical documents faxed to [facility] ([place], [place]). LARISSA signed and placed in chart. Patient voiced no other needs at this time and is satisfied with DC plan. Transportation provider at discharge will be with [facility] ([place], [place]). DC IMM delivered, explained, signed by the patient, and placed in chart. Signed form also left with the patient. CM will continue to follow and will assist as needed with dc plans/needs. ENTERED DATE: 04/15/21 11:46 CT COMMENT TYPE: Discharge Planning REVIEWER: Julee Granados Faxed clinical documents and D/C order to [facility] ([place], [place]) ([phone]). DCP REVIEW SUMMARY ANTICIPATED D/C DATE: 04/15/2021 EXPECTED LOS : 1 CASE STATUS: DCP Initiated INITIAL REVIEW: 04/14/2021 INITIAL REVIEWER: Miguel Angel Nuñez FINAL DISCHARGE DISPOSITION: : FINAL REVIEWER: FINAL REVIEW DATE: DCP Focus Questions & Answers QUESTION: ANSWER : PATIENT: KATTY MORFIN ENCOUNTER: [id number] MEDICAL RECORD#: [id number] ADMISSION DATE: 04/14/2021 DISCHARGE DATE: 04/15/2021 ATTENDING MD: MARGI FAULKNER : AGE: 75 MARITAL STATUS: S DC PLAN ID: [id number] FACILITY: [facility] PRINTED ON: 04/17/21 16:00 CT All edits/amendments must be made on the electronic document DICTATION DATE: 04/17/211599 INTERNET CAFE MANAGER: LISBETH 04/17/211599 RPT#: [id number] DC DATE:04/15/21 STATUS: DIS IN [facility] [address] [facility] [place] [address] END OF REPORT
--- NOTE | 2021-04-18 07:36 | MORECARE ---
CASE MANAGEMENT DISCHARGE SUMMARY PATIENT: KATTY MORFIN UNIT: [id number] ADM DATE: 04/14/21 AGE: 75 : 46 SEX: M ROOM/BED: D.[facility] AUTHOR: GUERO,DOC PHYSICIAN: REFERRING PHYSICIAN: MARGI VALENTINE MD DATE OF SERVICE: 04/18/21 Case Management Discharge Planning Summary COMMENTS ENTERED DATE: 04/15/21 18:58 CT COMMENT TYPE: Discharge Planning REVIEWER: Miguel Angel Nuñez CM met with patient to complete DC plan and to evaluate needs. Patient lives at [facility]. Spoke with ESTEE Pickett. Nieves stated that patient can return today. Clinical documents faxed to [facility]. LARISSA signed and placed in chart. Patient voiced no other needs at this time and is satisfied with DC plan. Transportation provider at discharge will be with [facility]. DC IMM delivered, explained, signed by the patient, and placed in chart. Signed form also left with the patient. CM will continue to follow and will assist as needed with dc plans/needs. ENTERED DATE: 04/15/21 11:46 CT COMMENT TYPE: Discharge Planning REVIEWER: Julee Granados Faxed clinical documents and D/C order to [facility] ([phone]). DCP REVIEW SUMMARY ANTICIPATED D/C DATE: 04/15/2021 EXPECTED LOS : 1 CASE STATUS: DCP Initiated INITIAL REVIEW: 04/14/2021 INITIAL REVIEWER: Miguel Angel Nuñez FINAL DISCHARGE DISPOSITION: : FINAL REVIEWER: FINAL REVIEW DATE: DCP Focus Questions & Answers QUESTION: ANSWER : PATIENT: KATTY MORFIN ENCOUNTER: [id number] MEDICAL RECORD#: [id number] ADMISSION DATE: 04/14/2021 DISCHARGE DATE: 04/15/2021 ATTENDING MD: MARGI FAULKNER : AGE: 75 MARITAL STATUS: S DC PLAN ID: [id number] FACILITY: [facility] PRINTED ON: 04/18/21 7:36 CT All edits/amendments must be made on the electronic document DICTATION DATE: 04/18/2135 OBIEE OBIA SOLUTION ARCHITECT: LISBETH 04/18/21 0735 RPT#: [id number] DC DATE:04/15/21 STATUS: DIS IN [facility] [address] [place] [address] END OF REPORT
== END 2021-04-15 14:45 | DRG 698 ==
LOC: D.M2 → D.ER 16:26 → D.EDHOLD 21:26 → D.M2 21:26
PROVIDERS: Emergency Medicine; ADMIT Family Medicine; ATTEND Family Medicine
DX: T82.49XA Other complication of vascular dialysis catheter, initial encounter (principal); N18.6 End stage renal disease; D62 Acute posthemorrhagic anemia; I96 Gangrene, not elsewhere classified; E11.52 Type 2 diabetes mellitus with diabetic peripheral angiopathy with gangrene; I12.0 Hypertensive chronic kidney disease with stage 5 chronic kidney disease or end stage renal disease; Z99.2 Dependence on renal dialysis; E11.22 Type 2 diabetes mellitus with diabetic chronic kidney disease; T82.898A Other specified complication of vascular prosthetic devices, implants and grafts, initial encounter; Y82.8 Other medical devices associated with adverse incidents; Z79.4 Long term (current) use of insulin; F01.50 Vascular dementia, unspecified severity, without behavioral disturbance, psychotic disturbance, mood disturbance, and anxiety; G20 Parkinson's disease; E78.5 Hyperlipidemia, unspecified; F41.8 Other specified anxiety disorders; R53.81 Other malaise; E03.8 Other specified hypothyroidism; E06.3 Autoimmune thyroiditis